=== PATIENT | female | born 1960 | race Caucasian/White ===

== ENCOUNTER 2022-07-24 03:56 | Day surgery (SDC) | payer OTHER ==
[2022-07-23 15:18] VITALS: BMI 44.6
[2022-07-24] MEDS ORDERED: MIDAZOLAM HCL 2 MG/2 ML SINGLE DOSE VIAL ONE (11:25)
[2022-07-24] MEDS ORDERED: IBUPROFEN 800 MG/8 ML IJ IVPB PRN (12:31)
[2022-07-24] MEDS ORDERED: ONDANSETRON 4 MG/2 ML VIAL IVPUSH PRN (12:31)
[2022-07-24] MEDS ORDERED: ACETAMINOPHEN 500 MG TABLET (FP) PO PRN (12:31)
[2022-07-24] MEDS ORDERED: oxyCODONE HCL 5 MG TABLET PO PRN (12:31)
[2022-07-24] MEDS ORDERED: LACTATED RINGERS SOLUTION 1,000 ML IV SCH (12:45)
[2022-07-24 13:47] VITALS: RESP 18; TEMP 97
[2022-07-24 14:40] VITALS: BP 144/74; PULSE 63
== END 2022-07-24 14:20 | disposition home or self-care (01) ==
LOC: JASU-SURG 03:56
PROVIDERS: ATTEND Obstetrics & Gynecology
PROC: 0UBC7ZX Excision of Cervix, Via Natural or Artificial Opening, Diagnostic (ICD-10-PCS; principal; 2022-07-24 11:00)
DX: N87.9 Dysplasia of cervix uteri, unspecified (principal); N72 Inflammatory disease of cervix uteri
CPT/HCPCS: 88305-TC; 88307-TC; 88341-TC; 88342-TC; 94760